=== PATIENT | female | born 1930 | race Caucasian/White ===

== ENCOUNTER 2019-02-18 07:43 | Day surgery (SDC) | payer MEDICARE, OTHER ==
[2019-02-18] VITALS (10 sets, daily range): BP systolic 65–120; BP diastolic 44–71
[~2019-02-18] VITALS: Ht 170.2 cm; Wt 80.9 kg
[~2019-02-18 07:43] MED LIST: ALD25T PO; ASPI-1265 PO; BENA10TA74 PO; CARV-50 PO; CHOL100046 PO; CYAN500T63 PO; DIGO125T PO; FURO40TA4 PO; GLIM1TAB3 PO; INSU100V13 SQ; LANTUS SQ; MULT-66 PO; OMEG1CAP39 PO; POTA20TA19 PO; SIMV10TA2 PO; VITC500T PO; [UNRECOGNIZED DRUG - CODE] PO
[2019-02-18] MEDS ORDERED: Cefazolin 2GM/100ML NS IVPB 100 ML IV ONE (08:10)
[2019-02-18] MEDS ORDERED: normal saline 1000ml 1,000 ML IV SCH (08:15)
[2019-02-18] MEDS ORDERED: dextrose 50%-water 50ml dispensing syringe IV ONE (08:27)
[2019-02-18 08:47] LABS: BASOPHILS # (AUTO) 0.1 X10'3 (0-0.2); BASOPHILS % (AUTO) 0.9 % (0-1); EOSINOPHILS # (AUTO) 0.3 X10'3 (0-0.9); EOSINOPHILS % (AUTO) 5.3 % (0-6); HEMATOCRIT 42.2 % (35.0-45.0); LYMPHOCYTES % (AUTO) 17.9 % (21-51); MEAN CORPUSCULAR HEMOGLOBIN 28.9 PG (27.0-31.0); MEAN CORPUSCULAR HGB CONC 33.2 g/dL (33.0-36.5); MEAN PLATELET VOLUME 8.8 FL (7.4-10.4); MONOCYTES # (AUTO) 0.7 X10'3 (0-0.9); NEUTROPHILS # (AUTO) 3.5 X10'3 (1.8-7.7); NEUTROPHILS % (AUTO) 63.9 % (42-75); PLATELET COUNT 171 X10'3 (140-440); RED BLOOD COUNT 4.85 X10'6 (4.20-5.60); WHITE BLOOD COUNT 5.5 X10'3 (4.5-11.0)
[2019-02-18 09:05] LABS: ALBUMIN 3.9 G/DL (3.4-5.0); ANION GAP 5 (8-16); BLOOD UREA NITROGEN 32 MG/DL (7-18); BUN/CREATININE RATIO 28.6 (6.6-38.0); CALCIUM 8.6 MG/DL (8.5-10.1); CHLORIDE 110 MMOL/L (99-107); CREATININE 1.12 MG/DL (0.40-0.90); SODIUM 147 MMOL/L (135-145); TOTAL CARBON DIOXIDE 31.6 MMOL/L (24-32); eGFR 46 ML/MIN
[2019-02-18 09:08] LABS: GLUCOSE 39 MG/DL (70-104)
[2019-02-18] MEDS ORDERED: SACU1TAB7 PO (09:21)
[2019-02-18] MEDS ORDERED: INSU100V41 INJ (09:21)
[2019-02-18] MEDS ORDERED: ASPI-1264 PO (09:21)
[2019-02-18] MEDS ORDERED: LIDOcaine 1% W/epiNEPHrine 1:100,000 20ml vial ONE ×2 (09:39→10:27)
[2019-02-18] MEDS ORDERED: ceFAZolin 1GM/D5W- ADD-VANTAGE 50 ML IV ONE (09:39)
[2019-02-18] MEDS ORDERED: ceFAZolin 1000mg inj ONE (09:39)
[2019-02-18] MEDS ORDERED: midazolam 2 mg/2 ml injection ONE ×2 (09:40→10:43)
[2019-02-18] MEDS ORDERED: fentaNYL/PF 50MCG/1 ML 2ML syringe ONE (09:40)
[2019-02-18] MEDS ORDERED: dextrose ORAL solution 15 GM/59 ML bottle PO PRN ×2 (12:05)
[2019-02-18] MEDS ORDERED: MESSAGE TO PHARMACY PO ONE (12:05)
[2019-02-18] MEDS ORDERED: dextrose 50%-water 50ml dispensing syringe IV PRN ×2 (12:05)
[2019-02-18] MEDS ORDERED: insulin Lispro (HumaLOG) vial - multi-dose SQ SCH (12:05)
[2019-02-18] MEDS ORDERED: glucagon, human recombinant 1mg kit SUBCUT PRN (12:05)
[2019-02-18] MEDS ORDERED: vancomycin/NS 1 GM ADD-VANTAGE 250 ML X 1 DOSE IV ONE (13:00)
[2019-02-18 20:59] LABS: HEMOGLOBIN A1C 7.8 % (4.5-6.2)
[2019-02-18] MEDS ORDERED: insulin glargine (Lantus) pen - multi-dose SQ SCH (21:00)
== END 2019-02-18 16:00 | disposition home or self-care (01) ==
LOC: SSTAY O 07:43
PROVIDERS: ATTEND Internal Medicine Cardiovascular Disease
DX: Z45.02 Encounter for adjustment and management of automatic implantable cardiac defibrillator (principal); I25.10 Atherosclerotic heart disease of native coronary artery without angina pectoris; I11.0 Hypertensive heart disease with heart failure; I50.22 Chronic systolic (congestive) heart failure; E11.9 Type 2 diabetes mellitus without complications; E78.5 Hyperlipidemia, unspecified; I48.0 Paroxysmal atrial fibrillation; I27.20 Pulmonary hypertension, unspecified; E03.9 Hypothyroidism, unspecified; M19.90 Unspecified osteoarthritis, unspecified site; E66.9 Obesity, unspecified; Z68.27 Body mass index [BMI] 27.0-27.9, adult; Z79.899 Other long term (current) drug therapy; Z79.82 Long term (current) use of aspirin; Z90.710 Acquired absence of both cervix and uterus; Z96.643 Presence of artificial hip joint, bilateral; Z96.653 Presence of artificial knee joint, bilateral; Z98.890 Other specified postprocedural states; F17.210 Nicotine dependence, cigarettes, uncomplicated
CPT/HCPCS: 33263; 36415; 80048; 82948; 83036; 85025; 85610; 93005; 99152; 99153; C1721; J0690; J1815; J2250; J3010; J3370; J7030; A4620; A6258